=== PATIENT | female | born 1980 ===

== ENCOUNTER 2016-10-21 13:30 | Emergency (ER) | payer SELFPAY ==
--- NOTE | 2016-10-24 17:50 | ER ---
ADMIT: 10/21/2016 RM/LOC: ER [facility] MR#: [id number] [address] CHRISTIANO CHASE [facility] 08/14 [facility] [place] [place] [address] Emergency Room Report SEX: F AGE: 36 : 1980 DATE: 10/21/2016 ADDENDUM: This patient comes into the ER because she is having severe abdominal pain. She says she has it almost about once a month, it is very severe in her epigastric area and goes into her back. She rates the pain as a 10/10. She is very nauseated. It seems to be worse after eating. On physical exam, this is a distressed 36-year-old white female. Her pain is in the epigastric area going into her back. Ultrasound showed several gallstones, but no cholecystitis. I did give her 2 Percocets here in the ER. When I went to re-evaluate her, she was feeling better. Her AST was elevated at 153, ALT 95, and her lipase was normal. White count was also normal. I did talk to her about being on a low-fat diet, and she is to follow up with the surgeon Dr. Sherman this next week if she continues to have pain. Please see my T-sheet. AMY Gomes / Watson Anderson MD / modl JOB #: [id number] CC: Watson Anderson MD, Attending Physician Chuckie Sherman MD, Family Physician
== END 2016-10-21 16:20 | disposition home or self-care (01) ==
LOC: ER 13:30
DX: K80.50 Calculus of bile duct without cholangitis or cholecystitis without obstruction (principal)

== ENCOUNTER 2016-11-24 18:25 | Emergency (ER) | payer SELFPAY ==
--- NOTE | 2016-12-01 11:01 | ER ---
ADMIT: 11/24/2016 RM/LOC: ER [facility] MR#: [id number] [address] CHRISTIANO CHASE [facility] 08/14 [place] [address] Emergency Room Report SEX: F AGE: 36 : 1980 DATE: 11/24/2016 PRIMARY PROVIDER: City call. SUBJECTIVE: The patient is a female, presents to the emergency room for second time, did not understand her instructions originally when she was diagnosed with cholecystitis. She ran out of her [place] medication and thinks she could go to the pharmacy and get a refill over there without a prescription. She came in Sunday afternoon, and I had spoken with her, telling her that we do not do refills in the emergency room. She is to follow up with Dr. Sherman, surgeon on Sunday. I will however give her medication for the weekend as she will be in a lot of pain for the next 2 days. She denies any nausea or vomiting. No diarrhea. No fever. She actually looks very good, but stated that the medication that was given to her, Ash[place] was pretty helpful with the pain. She is unable to eat what she wants, and she is on a restricted diet trying to prevent getting any problems and pain with her gallbladder. AMY Jaime / Saroj Huertas MD / srinivas JOB #: [id number] CC: Saroj Huertas MD, Attending Physician UNKNOWN, Family Physician
== END 2016-11-24 19:30 | disposition home or self-care (01) ==
LOC: ER 18:25
DX: K81.1 Chronic cholecystitis (principal)